=== PATIENT | female | born 1960 | race Caucasian/White ===

== ENCOUNTER 2019-07-22 07:34 | Emergency (ER) | payer OTHER ==
[~2019-07-22] VITALS: Ht 157.5 cm; Wt 59.0 kg
[~2019-07-22 07:34] MED LIST: ASPIRIN EC81 MG PO; DAILY MULTIPLE1 EACH PO; LISINOPRIL5 MG PO; OXYBUTYNIN CHLO10 MG PO; SERTRALINE HCL100 MG PO; TYLENOL325 MG PO
--- NOTE | 2019-07-22 12:09 | EKG ---
[facility] [address] [facility] [place], [place] [address] Signed Normal sinus rhythm ST \T\ T wave abnormality, consider inferolateral ischemia Prolonged QT Abnormal ECG No previous ECGs available Confirmed by LADY LINK DO ([id number]) on 07/22/2019 12:09:18 PM Electronically Signed By: LADY LINK DO 07/22/19 1209 PATIENT NAME: PINGJOSSEDerek KYLEZAKIYA Electrocardiogram DATE OF : 62 PHYSICIAN: LADY LINK DO REPORT #: [id number] REPORT IS CONFIDENTIAL AND NOT TO BE RELEASED WITHOUT AUTHORIZATION
== END 2019-07-22 09:31 | disposition home or self-care (01) ==
LOC: ED 07:34
DX: F41.9 Anxiety disorder, unspecified (principal); Z79.899 Other long term (current) drug therapy; Z79.82 Long term (current) use of aspirin
CPT/HCPCS: 71045; 80053; 83735; 84443; 84484; 85025; 93005; 93010; 99285-25